=== PATIENT | female | born 1980 | race African-American/Black ===

== ENCOUNTER 2017-10-02 13:28 | Outpatient (CLI) | payer OTHER ==
--- NOTE | 2017-10-02 15:07 | MRI ---
BRAIN MRI WITHOUT CONTRAST: DATE: 10/02/17. COMPARISON: None. HISTORY: Persistent new daily headaches. TECHNIQUE: Multiplanar, multisequence MR imaging of the brain obtained without contrast. FINDINGS: The axial gradient echo imaging demonstrates no evidence for intracranial hemorrhage. Diffusion weighted imaging demonstrates no evidence for acute infarction. Arterial flow voids at axial level of skull base appear grossly unremarkable on the T2 weighted imagi ng. No midline shift, mass effect, or ventricular enlargement is seen. Regional bone marrow signal intensity appears within normal limits. IMPRESSION: No acute findings. POS: [facility]
== END 2017-10-02 13:29 | disposition home or self-care (01) ==
LOC: MRI 13:28
PROVIDERS: ATTEND Family Medicine
DX: G44.52 New daily persistent headache (NDPH) (principal)
CPT/HCPCS: 70551

== ENCOUNTER 2022-06-13 14:07 | Outpatient (CLI) | payer MEDICAID | END 2022-06-13 14:08 | disposition home or self-care (01) | LOC: BICMAMMO 14:07 | PROVIDERS: ATTEND Nurse Practitioner Family | DX: Z12.31 Encounter for screening mammogram for malignant neoplasm of breast (principal); Z80.3 Family history of malignant neoplasm of breast | CPT/HCPCS: 77067 ==